=== PATIENT | male | born 1990 | race Caucasian/White ===

== ENCOUNTER 2017-12-14 11:43 | Emergency (ER) | payer OTHER ==
[~2017-12-14] VITALS: Ht 185.4 cm; Wt 66.0 kg
[2017-12-14] MEDS ORDERED: PERCOCET 5/31 TABLET PO (14:43)
[2017-12-14] MEDS ORDERED: MIRALAX17 GM PO (14:43)
[2017-12-14] MEDS ORDERED: PROCTO-MED HC30 GM PR (14:43)
[2017-12-14 15:17] VITALS: BP 145/93
== END 2017-12-14 15:17 | disposition home or self-care (01) ==
LOC: EME 11:43
DX: K64.9 Unspecified hemorrhoids (principal); A63.0 Anogenital (venereal) warts; F17.200 Nicotine dependence, unspecified, uncomplicated
CPT/HCPCS: 99281; 99284

== ENCOUNTER 2018-01-07 15:07 | Emergency (ER) | payer SELFPAY ==
[~2018-01-07] VITALS: Ht 185.4 cm; Wt 67.0 kg
[~2018-01-07 15:07] MED LIST: MIRALAX17 GM PO; PERCOCET 5/31 TABLET PO; PROCTO-MED HC30 GM PR
[2018-01-07] MEDS ORDERED: MOTRIN800 MG PO (15:52)
[2018-01-07] MEDS ORDERED: ULTRAM50 MG PO (15:52)
[2018-01-07] MEDS ORDERED: PROCTOCORT30 M1 PR (15:52)
[2018-01-07 16:21] VITALS: BP 124/83
== END 2018-01-07 16:35 | disposition home or self-care (01) ==
LOC: EME 15:07
DX: K64.9 Unspecified hemorrhoids (principal); F17.200 Nicotine dependence, unspecified, uncomplicated

== ENCOUNTER 2018-01-17 23:38 | Emergency (ER) | payer OTHER ==
[~2018-01-17] VITALS: Ht 177.8 cm; Wt 67.9 kg
[~2018-01-17 23:38] MED LIST changes: +MOTRIN800 MG PO; +PROCTOCORT30 M1 PR; +ULTRAM50 MG PO
[2018-01-17 23:47] VITALS: BP 162/109
== END 2018-01-18 00:41 | disposition left against medical advice (07) ==
LOC: EME 23:38
DX: T40.601A Poisoning by unspecified narcotics, accidental (unintentional), initial encounter (principal); T40.2X1A Poisoning by other opioids, accidental (unintentional), initial encounter; J96.90 Respiratory failure, unspecified, unspecified whether with hypoxia or hypercapnia; Z91.030 Bee allergy status; Z53.20 Procedure and treatment not carried out because of patient's decision for unspecified reasons
CPT/HCPCS: 71045; 80053; 81003; 84484; 85027; 99281; 99284; G0480; J2310; J7030